=== PATIENT | female | born 1990 | race Caucasian/White ===

== ENCOUNTER 2016-07-05 22:07 | Emergency (ER) | payer OTHER ==
[~2016-07-05] VITALS: Ht 157.5 cm; Wt 85.1 kg
[~2016-07-05 22:07] MED LIST: AMOXICILLIN500 MG PO; DEPRESSION MED; DOLOPHINE HCL5 MG PO; IBUPROFEN800 MG PO; METHADONE5 MG PO; NAPROSYN500 MG PO; NORCO 5/3251 TABLET PO; PRENATAL TABLE1 EAC3 PO; TRAZODONE HCL50 MG PO; ZOFRAN4 MG PO; ZOLOFT50 MG PO
[2016-07-05 23:23] LABS: HEMATOCRIT 36.3 % (36.0-46.0); MCH 26.8 PG (29.0-34.0); MCHC 32.2 G/DL (30.0-36.0); MCV 83.1 FL (83-99); MEAN PLAT.VOLUME 11.5 uM^3 (9.5-12.4); PLATELET COUNT 270 K/uL (156-360); RBC DIS.WIDTH-CV 13.6 % (11.8-14.6); RBC DIS.WIDTH-SD 41.4 % (39-53); RED BLOOD COUNT 4.37 M/uL (3.80-5.20); WHITE BLOOD COUNT 14.2 K/uL (4.1-10.2)
[2016-07-05 23:36] LABS: BILIRUBIN NEGATIVE; BLOOD NEGATIVE; COLOR YELLOW ((YELLOW)); GLUCOSE (STRIP) NEGATIVE; KETONES NEGATIVE; LEUKOCYTES NEGATIVE; NITRITE NEGATIVE; PROTEIN (STRIP) NEGATIVE; UROBILINOGEN 0.2 MG/DL (0.2-1.0)
[2016-07-05 23:36] LABS: CHLORIDE 108 mEq/L (99-109); POTASSIUM 3.5 mEq/L (3.7-5.4); SODIUM 137 mEq/L (136-147)
[2016-07-05 23:38] LABS: ADD MIUA? NO; UCUL ADDED? NO
[2016-07-05 23:39] LABS: GLUCOSE 111 mg/dL (70-99)
[2016-07-05 23:40] LABS: ANION GAP 7 MEQ/L (2-14)
[2016-07-05 23:41] LABS: TOTAL BILIRUBIN 0.2 mg/dL (0.0-1.0)
[2016-07-05 23:42] LABS: ALKALINE PHOSPHATASE 94 IU/L (3-129); GFR ESTIMATE (CALCULATED) > 59 mL/min/
[2016-07-05 23:43] LABS: UREA NITROGEN (BUN) 8 mg/dL (9-23)
[2016-07-05 23:46] LABS: LIPASE 20 U/L (1.0-51.0)
[2016-07-05 23:51] LABS: QUANTITATIVE HCG < 4.0 MIU/ML
[2016-07-06] MEDS ORDERED: CITRATE OF MAG296 ML PO (00:04)
[2016-07-06 00:22] VITALS: BP 104/60
== END 2016-07-06 00:26 | disposition home or self-care (01) ==
LOC: EME 22:07
PROVIDERS: Physician Assistant Medical
DX: R10.10 Upper abdominal pain, unspecified (principal); F17.200 Nicotine dependence, unspecified, uncomplicated
CPT/HCPCS: 74022; 80053; 81003; 83690; 84702; 85027; 99281; 99284

== ENCOUNTER 2016-09-09 10:47 | Emergency (ER) | payer OTHER ==
[~2016-09-09] VITALS: Ht 157.5 cm; Wt 82.4 kg
[~2016-09-09 10:47] MED LIST changes: +CITRATE OF MAG296 ML PO
[2016-09-09 10:59] VITALS: BP 124/73
== END 2016-09-09 13:00 | disposition left against medical advice (07) ==
LOC: EME 10:47
DX: R22.0 Localized swelling, mass and lump, head (principal); Z53.21 Procedure and treatment not carried out due to patient leaving prior to being seen by health care provider; F17.200 Nicotine dependence, unspecified, uncomplicated